=== PATIENT | female | born 1975 | race Caucasian/White ===

== ENCOUNTER 2021-03-05 18:31 | Outpatient (REF) | payer OTHER, SELFPAY ==
--- NOTE | ~2021-03-05 | MR_ITS ---
EXAMINATION: MRI OF THE BRAIN WITHOUT CONTRAST CLINICAL INFORMATION: Chronic daily headaches. COMPARISON: There are no prior studies available for comparison. TECHNIQUE: MRI of the brain was obtained using routine sequences without contrast. FINDINGS: No diffusion abnormalities are identified to suggest an acute or subacute infarct. No mass effect or midline shift is seen. The ventricles are normal in size. Brain parenchymal signal appears normal. No extra-axial fluid collections are seen. The brainstem and cerebellum are normal. No pathologic magnetic susceptibility artifact is identified on the gradient refocused acquisition. Marrow signal appears normal. The cerebellar tonsils extend to the level of the foramen magnum. They have normal contour. The pituitary axis is normal. The major intracranial flow-voids at the level of the [place] of [place] are preserved. The dural venous sinus flow-voids are maintained. There is trace fluid at the right mastoid tip. The paranasal sinuses are well-aerated. MR/MR head/brain wo con IMPRESSION: 1. There are no acute intracranial findings. No masses are demonstrated. There is no significant paranasal sinus disease.
== END 2021-03-05 18:32 | disposition home or self-care (01) ==
LOC: HO.MRI 18:31
PROVIDERS: Visit Provider Psychiatry & Neurology Neurology
DX: R51.9 Headache, unspecified (principal)
CPT/HCPCS: 70551